=== PATIENT | female | born 1985 | race Asian ===

== ENCOUNTER 2024-03-31 09:16 | Emergency (ER) | payer OTHER ==
[2024-03-31 09:22] VITALS: BP 116/68; PULSE 84; RESP 20; TEMP 98.1; BMI 21.2
[2024-03-31 09:54] LABS: BASO % 0.5 % (0-2.0); EOS % 1.7 % (0-4.5); HEMATOCRIT 40.6 % (32.4-45.2); HEMOGLOBIN 14.1 GM/dL (10.7-15.3); LYMPH % 26.4 % (8-40); MCH 30.4 pg (25.7-33.7); MCHC 34.6 g/dl (32.0-36.0); MEAN CELL VOLUME 87.9 fl (80-96); MEAN PLT VOLUME 8.6 fl (7.5-11.1); MONO % 5.3 % (3.8-10.2); NEUT % 66.1 % (42.8-82.8); PLATELET COUNT 241 10^3/uL (134-434); RBC 4.62 M/mm3 (3.60-5.2); RDW 12.1 % (11.6-15.6); WHITE BLOOD COUNT 7.8 K/mm3 (4.0-10.0)
[2024-03-31 09:58] LABS: EPI CELLS 15 /uL (0-25.1); HYALINE CASTS 0 /uL (0-3.1); PH,URINE 5.5 (5.0-8.0); URINE APPEARANCE CLOUDY; URINE BACTERIA 413 /uL (0-1359); URINE BILIRUBIN NEGATIVE (NEGATIVE); URINE COLOR ORANGE; URINE GLUCOSE (UA) NEGATIVE (NEGATIVE); URINE KETONE 1+ (NEGATIVE); URINE LEUK ESTERASE TRACE (NEGATIVE); URINE NITRITE NEGATIVE (NEGATIVE); URINE PROTEIN TRACE (NEGATIVE); URINE RBC 6547 /uL (0-23.9); URINE UROBILINOGEN 0.2 mg/dL (0.2-1.0); URINE WBC 40 /uL (0-25.8)
[2024-03-31 10:16] LABS: ALBUMIN 3.8 g/dl (3.4-5.0); CALCIUM 9.1 mg/dL (8.5-10.1)
[2024-03-31 10:18] LABS: BLOOD UREA NITROGEN 12.7 mg/dL (7-18)
[2024-03-31 10:19] LABS: CREATININE 0.6 mg/dL (0.55-1.3)
[2024-03-31 10:21] LABS: BILIRUBIN,TOTAL 0.8 mg/dL (0.2-1); TOT PROT 7.3 g/dl (6.4-8.2)
== END 2024-03-31 13:04 | disposition home or self-care (01) ==
LOC: JER 09:16
DX: O20.9 Hemorrhage in early pregnancy, unspecified (principal); O26.891 Other specified pregnancy related conditions, first trimester; R10.9 Unspecified abdominal pain; Z3A.00 Weeks of gestation of pregnancy not specified
CPT/HCPCS: 36415; 76817-TC; 80053; 81003; 84702; 84703; 85025; 87086; 99284-25

== ENCOUNTER 2024-04-02 09:07 | Emergency (ER) | payer OTHER ==
[2024-04-02 09:16] VITALS: BP 97/64; PULSE 78; RESP 18; TEMP 99; BMI 21.2
== END 2024-04-02 14:34 | disposition home or self-care (01) ==
LOC: JERFT 09:07
DX: O20.0 Threatened abortion (principal)
CPT/HCPCS: 36415; 84702; 86850; 86900; 86901; 99283-25

== ENCOUNTER 2024-04-03 08:44 | Emergency (ER) | payer OTHER ==
[2024-04-03 08:54] VITALS: BP 98/54; PULSE 73; RESP 20; TEMP 97.8; BMI 21.2
== END 2024-04-03 11:06 | disposition home or self-care (01) ==
LOC: JERFT 08:44
DX: O03.9 Complete or unspecified spontaneous abortion without complication (principal)
CPT/HCPCS: 36415; 84702; 99283-25